=== PATIENT | female | born 1940 | race African-American/Black ===

== ENCOUNTER 2024-01-11 18:55 | Observation (INO) ==
--- NOTE | 2024-01-11 19:17 | ED.PDOC ---
General ED Provider: Dr. EVA LIANG MD Chief Complaint: Nausea/Vomiting Stated Complaint: Patient is a 83-year-old female that was brought to the emergency department by the care home for chest pain, shortness of breath, and nausea and vomiting. Patient's family member was at bedside and stated the care home stated the patient had 4 bouts of nausea and vomiting. They stated that they had not given her anything for the nausea and vomiting. They also stated that the patient has been coughing for the past couple days. They stated that the patient started complaining of chest discomfort with her coughing this afternoon. The patient stated that the chest discomfort was centered in her chest and does not radiate. They denied the patient having any diaphoresis. They stated that nothing made the symptoms worse or better. They denied the patient having any diarrhea, dizziness, syncope, loss of consciousness, abdominal pain, fever, or any other acute symptoms not currently mentioned in the HPI. Patient has tachycardia with a rate of 117 bpm. Patient's other vital signs are stable. Patient's GCS is 15. Time Seen by Provider: 01/11/24 18:57 Mode of Arrival: Wheelchair Information Source: Patient Exam Limitations: No limitations Primary Care Provider: ESSENCE ADAME Nursing and Triage Documentation Reviewed and Agree: Yes Does Patient Take Opioids?: No Is Patient Opioid Naive?: No What is Opioid Naive?: *Opioid Naive implies the patient is not already taking opioids or not chronically receiving opioids on a daily basis. *PRN dosing is not "usually" associated with tolerance. *Patients are at higher risk of over-sedation and aspiration. Is Patient Opioid Tolerant?: No What is Opioid Tolerant?: *Opioid Tolerance implies less than the expected response to an opioid. *Acquired tolerance is defined by the patient taking 60mg of oral morphine daily (or equianalgesic dose of another opioid) for 1 week or more. *Often associated with chronic pain. *May take more than usual dose to achieve desired pain control. Review of Systems Review Of Systems Constitutional: Reports No symptoms Eyes: Reports No symptoms Ears, Nose, Mouth, Throat: Reports No symptoms Respiratory: Reports Cough and Shortness of Breath Cardiac: Reports Chest pain GI: Reports Nausea and Vomiting : Reports No symptoms Musculoskeletal: Reports No symptoms Skin: Reports No symptoms Neurological: Reports No symptoms Endocrine: Reports No symptoms Hematologic/Lymphatic: Reports No symptoms All Other Systems: Reviewed and Negative [facility] Medical History Diabetes mellitus E11.9 - Type 2 diabetes mellitus without complications (ICD-10) Schizophrenia F20.9 - Schizophrenia, unspecified (ICD-10) Surgical History History of gynecological procedure Z98.890 - Other specified postprocedural states (ICD-10) Status post hysterectomy Z90.710 - Acquired absence of both cervix and uterus (ICD-10) Female Reproductive History Menstrual Hx Hysterectomy: Yes Hx Tubal Ligation: No Physical Exam Physical Exam Appearance: Reports Well-nourished Ill-appearing: Not Applicable Pain Distress: Not Applicable Eyes: Reports ISAIAS, EOMI and Conjunctiva clear ENT: Reports Nose normal and Oropharynx normal Neck: Supple Respiratory: Reports Airway patent, Breath sounds equal, Wheezes (B/L mid and lower lung ny), Other (Tachypneic with a rate of 26 bpm. ) and Not Examined Cardiovascular: Reports Pulses normal, No rub, No murmur and Tachycardia (HR 126 bpm) GI/: Reports Soft, Nontender and Bowel sounds normal Musculoskeletal: Reports Normal strength, ROM intact and No edema Skin: Reports Warm, Dry and Normal color Neurological: Reports Sensation intact, Motor intact and Reflexes intact Psychiatric: Reports Not Examined Critical Care Note Critical Care Note Total Critical Care Time (mins): 60 Comments: Critical Care Procedure Note Authorized and Performed by: Dr. Eva Liang MD, MPH Total critical care time: 60minutes Due to a high probability of clinically significant, life threatening deterioration, the patient required my highest level of preparedness to intervene emergently and I personally spent this critical care time directly and personally managing the patient. This critical care time included obtaining a history; examining the patient; pulse oximetry; ordering and review of studies; arranging urgent treatment with development of a management plan; evaluation of patient's response to treatment; frequent reassessment; and, discussions with other providers. This critical care time was performed to assess and manage the high probability of imminent, life-threatening deterioration that could result in multi-organ failure. It was exclusive of separately billable procedures and treating other patients and teaching time. Please see MDM section and the rest of the note for further information on patient assessment and treatment. Course Course 01/11/24 19:20 01/11/24 19:20 Orders, Labs, Meds: Lab Review 01/11/24 01/11/24 19:20 19:26 WBC 5.57 RBC 5.20 Hgb 13.3 Hct 42.8 MCV 82.3 MCH 25.6 L MCHC 31.1 L RDW Coeff of [place] 16.3 H Plt Count 257 Immature Gran % (Auto) 0.4 Neut % (Auto) 56.2 Lymph % (Auto) 30.3 [place] % (Auto) 10.2 H Eos % (Auto) 2.5 Baso % (Auto) 0.4 Neut # (Auto) 3.1 Lymph # (Auto) 1.7 [place] # (Auto) 0.6 Eos # (Auto) 0.1 Baso # (Auto) 0.0 Immature Gran # (Auto) 0.0 Sodium 141.0 Potassium 3.89 Chloride 108.6 H Carbon Dioxide 21.3 L Anion Gap 14.99 BUN 16.8 Creatinine 1.00 Estimated GFR (MDRD) 64.00 BUN/Creatinine Ratio 16.80 Glucose 116.5 H Lactic Acid 1.64 Calcium 9.52 Total Bilirubin 0.47 AST 27.6 ALT 18.6 Alkaline Phosphatase 73.9 Troponin I < 0.012 Total Protein 7.20 Albumin 4.03 Globulin 3.17 Albumin/Globulin Ratio 1.27 Lipase 160.7 Influ A Molecular Assay Negative by naat Influ B Molecular Assay Negative by naat RSV Antigen Negative by naat SARS CoV-2 RNA Rapid VAISHALI Negative Orders Category Date Time Status EKG-(ED ONLY) Stat CARDIO 01/11/24 19:17 Completed NEBULIZER TREATMENT Stat CARDIO 01/11/24 19:18 Completed NPO REMINDER: IMAGING ONCE CARE 01/11/24 21:02 Active ACCUCHECK (ED) [ED ACCUCHECK ASSESSMENT] .ONCE EMERGENCY 01/11/24 19:18 Active ED IV/MEDIPORT/POWERPORT .ONCE EMERGENCY 01/11/24 19:12 Active BLOOD CULTURE (ED ONLY) Stat LAB 01/11/24 19:35 Ordered CBC W/ AUTO DIFF Stat LAB 01/11/24 19:20 Completed COMPREHENSIVE METABOLIC PANEL Stat LAB 01/11/24 19:20 Completed FLU A & B MOLECULAR [FLU A/B MOLECULAR] Stat LAB 01/11/24 19:26 Completed LACTIC ACID Stat LAB 01/11/24 19:20 Completed LIPASE Stat LAB 01/11/24 19:20 Completed RAPID STREP SCREEN [MOLECULAR GROUP A STREP] Stat LAB 01/11/24 19:26 Completed RSV Stat LAB 01/11/24 19:26 Completed SARS COV-2 RNA RAPID VAISHALI Stat LAB 01/11/24 19:26 Completed TROPONIN I Stat LAB 01/11/24 19:20 Completed URINALYSIS C & S IF INDICATED Stat LAB 01/11/24 19:12 Uncollected 0.9 % Sodium Chloride [Saline Flush] Meds 01/11/24 19:12 Active 1 syr IVF PRN PRN Ipratropium/Albuterol Neb [Duoneb] Meds 01/11/24 19:17 Discontinued 3 ml NEB ONCE STA Labetalol HCl [Trandate] Meds 01/11/24 20:25 Discontinued 20 mg IVP ONCE ONE Labetalol HCl [Trandate] Meds 01/11/24 20:59 Discontinued 20 mg IVP ONCE ONE Methylprednisolone Sod Succ/Pf [Solu-Medrol 125 mg] Meds 01/11/24 19:17 Discontinued 125 mg IVP ONCE ONE Ondansetron HCl/Pf [Zofran 4 mg/2 ml] Meds 01/11/24 19:12 Discontinued 4 mg IVP ONCE STA Pantoprazole Sodium [Protonix] Meds 01/11/24 19:23 Discontinued 40 mg IVP ONCE ONE Piperacillin Sodium/Tazobactam [Zosyn 3.375 gm] 3.375 Meds 01/11/24 20:06 Discontinued gm 0.9 % Sodium Chloride [Sodium Chloride 100Ml] 100 ml IV ONCE Sodium Chloride 0.9% [Sodium Chloride] 1,000 ml Meds 01/11/24 19:12 Discontinued IV BOLUS CHEST, 1V AP ONLY Stat RADS 01/11/24 19:22 Completed CTA CHEST PE PROTOCOL Stat RADS 01/11/24 21:02 Completed Medications Generic Name Dose Route Start Last Admin Trade Name Freq PRN Reason Stop Dose Admin Sodium Chloride 1 syr 01/11/24 19:12 0.9% Sodium Chloride 10 Ml Disp.Syrin IVF PRN PRN To flush IV Discontinued Medications Generic Name Dose Route Start Last Admin Trade Name Freq PRN Reason Stop Dose Admin Albuterol/Ipratropium 3 ml 01/11/24 19:17 01/11/24 19:36 Ipratropium/Albuterol Vial.Neb NEB 01/11/24 19:18 3 ml ONCE STA Administration Sodium Chloride 1,000 mls @ 1,000 mls/hr 01/11/24 19:12 01/11/24 19:33 Sodium Chloride IV 01/11/24 20:11 1,000 mls/hr BOLUS ONE Administration Piperacillin Sod/Tazobactam 100 mls @ 200 mls/hr 01/11/24 20:06 01/11/24 20:52 Sod 3.375 gm/ Sodium Chloride IV 01/11/24 20:35 200 mls/hr ONCE ONE Administration Labetalol HCl 20 mg 01/11/24 20:25 01/11/24 20:45 Labetalol Hcl 20 Mg/4 Ml Disp.Syrin IVP 01/11/24 20:26 20 mg ONCE ONE Administration Labetalol HCl 20 mg 01/11/24 20:59 Labetalol Hcl 20 Mg/4 Ml Disp.Syrin IVP 01/11/24 21:00 ONCE ONE Methylprednisolone Sodium Succinate 125 mg 01/11/24 19:17 01/11/24 19:33 Methylprednisolone Sod Succ/Pf 125 Mg/2 Ml Vial IVP 01/11/24 19:18 125 mg ONCE ONE Administration Ondansetron HCl 4 mg 01/11/24 19:12 01/11/24 19:33 Ondansetron Hcl/Pf 4 Mg/2 Ml Sdv IVP 01/11/24 19:13 4 mg ONCE STA Administration Pantoprazole Sodium 40 mg 01/11/24 19:23 01/11/24 19:43 Pantoprazole Sodium 40 Mg Vial IVP 01/11/24 19:24 40 mg ONCE ONE Administration Vital Signs: Temp Pulse Resp BP Pulse Ox 01/11/24 19:05 97.2 F L 117 H 20 102/69 97 Discharge Plan Discharge Patient Disposition: PLACED OBSERVATION Discharge Problem: Community acquired bacterial pneumonia, Hypertensive urgency, Pleural effusion Dyspnea Qualifiers: Dyspnea type: shortness of breath Qualified Code(s): R06.02 - Shortness of breath Cancer of right lung Qualifiers: Lung location: unspecified part of lung Qualified Code(s): C34.91 - Malignant neoplasm of unspecified part of right bronchus or lung Did you review [place] MILIT[employer] SOURCE OPERATIONS OFFICER for ALL controlled substances?: Not Applicable ED Provider: AZUL,JESSICA Condition: Stable Physician Progress Note: Patient is a 83-year-old female that was brought to the emergency department by the care home for chest pain, shortness of breath, and nausea and vomiting. Patient's family member was at bedside and stated the care home stated the patient had 4 bouts of nausea and vomiting. They stated that they had not given her anything for the nausea and vomiting. They also stated that the patient has been coughing for the past couple days. They stated that the patient started complaining of chest discomfort with her coughing this afternoon. The patient stated that the chest discomfort was centered in her chest and does not radiate. They denied the patient having any diaphoresis. They stated that nothing made the symptoms worse or better. They denied the patient having any diarrhea, dizziness, syncope, loss of consciousness, abdominal pain, fever, or any other acute symptoms not currently mentioned in the HPI. Patient has tachycardia with a rate of 117 bpm. Patient's other vital signs are stable. Patient's GCS is 15. -Will order EKG, chest x-ray, troponin, and baseline labs. -Will give patient DuoNeb treatment for wheezing. Will also give IV methylprednisolone 125 mg. -EKG shows sinus tachycardia with a rate of [address] elevations noted. Right bundle branch block noted. This was interpreted by the ER physician. -Chest x-ray shows a right lower lobe consolidation which appears to be pneumonia. Will give the patient IV Zosyn 3.375 mg once for community-acquired pneumonia. -Patient has hypertensive urgency with a blood pressure of 186/116. Will give IV labetalol 20 mg. -Patient's blood pressure is 175/114. Patient's heart rate is 114 bpm. Will give another IV labetalol 20 mg. -Will order CTA of the chest to rule out PE. -Patient's blood pressures come down to 127/85. Patient's heart rate is down to 108 bpm. Patient's O2 sat is 97% on room air with 24 respirations per minute. -Will contact hospitalist for admission to the hospital. -(2100) spoke to hospitalist at [facility] about admission for this patient and she has agreed to admit the patient pending the CTA of the chest. -CTA of the chest showed 1. There is narrowing and obliteration of the right pulmonary arteries distal to the main vessel. There is a large mass-like consolidation in this region of the lung with an associated small pleural effusion and neoplasia at this level should be considered. The pulmonary arteries were otherwise unremarkable with no clearly defined embolus. 2. Cardiomegaly. 3. Multiple bilateral pulmonary nodules and masses consistent with a metastatic process. No pulmonary embolism. -Will admit patient to the hospital here at [facility]. -At time of admission for further observation patient's vital signs have improved to a heart rate of 102 bpm. Blood pressure 119/70, 97% O2 on room air.
[2024-01-11] MEDS: SODIUM CHLORIDE 1,000 ML IV ONE (19:33)
[2024-01-11] MEDS: ZOFRAN 4 MG/2 ML IVP STA (19:33)
[2024-01-11] MEDS: SOLU-MEDROL 125 MG IVP ONE (19:33)
[2024-01-11 19:35] LABS: BASOPHILS % (AUTO) 0.4 % (0.0-3.0); EOSINOPHILS # (AUTO) 0.1 K/ul (0.0-0.7); EOSINOPHILS % (AUTO) 2.5 % (0.0-7.0); HEMATOCRIT 42.8 % (37.0-47.0); HEMOGLOBIN 13.3 g/dl (12.0-16.0); IMMATURE GRANULOCYTE % (AUTO) 0.4 % (0.0-5.0); LYMPHOCYTES # (AUTO) 1.7 K/uL (0.60-3.4); LYMPHOCYTES % (AUTO) 30.3 (10.0-50.0); MEAN CORPUSCULAR HEMOGLOBIN 25.6 pg (27.0-31.0); MEAN CORPUSCULAR HGB CONC 31.1 (31.8-35.4); MEAN CORPUSCULAR VOLUME 82.3 fl (81.0-99.0); MONOCYTES # (AUTO) 0.6 K/uL (0.4-2.0); MONOCYTES % (AUTO) 10.2 (0-10); NEUTROPHILS # (AUTO) 3.1 K/ul (2.0-6.9); NEUTROPHILS % (AUTO) 56.2 % (42.2-75.2); PLATELET COUNT 257 10^3/uL (140-440); RDW COEFFICIENT OF VARIATION 16.3 % (11.6-14.8); WHITE BLOOD COUNT 5.57 K/ul (4.6-10.2)
[2024-01-11] MEDS: DUONEB NEB STA (19:36)
[2024-01-11] MEDS: PROTONIX IVP ONE (19:43)
[2024-01-11 20:10] LABS: ALANINE AMINOTRANSFERASE 18.6 U/L (0-35); ALBUMIN 4.03 g/dL (3.5-5.0); ALKALINE PHOSPHATASE 73.9 U/L (53-141); ASPARTATE AMINO TRANSFERASE 27.6 U/L (14-36); BILIRUBIN,TOTAL 0.47 mg/dL (0.2-1.3); BLOOD UREA NITROGEN 16.8 mg/dL (7-17); CALCIUM 9.52 mg/dL (8.4-10.2); CARBON DIOXIDE 21.3 mmol/L (22-30.0); CHLORIDE 108.6 mmol/L (98-107); GLUCOSE 116.5 mg/dL (74-106); LIPASE 160.7 U/L (23-300); POTASSIUM 3.89 mmol/L (3.5-5.1); TOTAL PROTEIN 7.2 g/dL (6.3-8.2)
[2024-01-11 20:11] LABS: MOLECULAR FLU A NEGATIVE BY NAAT (NEGATIVE); MOLECULAR FLU B NEGATIVE BY NAAT (NEGATIVE); RSV MOLECULAR NEGATIVE BY NAAT (NEGATIVE); SARS COV-2 RNA RAPID NAAT NEGATIVE (NEGATIVE)
--- NOTE | 2024-01-11 20:29 | DI ---
EXAM: CHEST RADIOGRAPH (1 VIEW) TECHNIQUE: Frontal Chest Radiograph. HISTORY: Nausea vomiting wheezing short of air COMPARISON: 05/21/2023 FINDINGS: Lines, Tubes, Devices: None Lungs and Pleura: Small to moderate right pleural fluid collection is present similar to May 21 2023. There is no obvious consolidation. Left lung is clear Cardiomediastinum: Normal cardiomediastinal silhouette. The aortic calcifications. Bones/Soft Tissues: No acute osseous abnormality. No soft tissue abnormality. Upper Abdomen: Within normal limits. IMPRESSION: Moderate right pleural complex similar to 05/21/2023
[2024-01-11] MEDS: TRANDATE IVP ONE (20:45)
[2024-01-11] MEDS: ZOSYN 3.375 GM 3.375 GM in SODIUM CHLORIDE 100ML 100 ML IV ONE (20:52)
[2024-01-11] MEDS ORDERED: TRANDATE IVP ONE (20:59)
--- NOTE | 2024-01-11 22:08 | CT ---
EXAM: CT ANGIOGRAPHY CHEST (PE PROTOCOL) HISTORY: Chest pain, tachycardia TECHNIQUE: CTA chest with intravenous contrast. PE protocol. Multiplanar images were provided with MIP images and 3-D reconstructions. COMPARISON: 06/09/2023 FINDINGS: There is narrowing and obliteration of the right pulmonary arteries distal to the main ve ssel. There is a large mass-like consolidation in this region of the lung with an associated small p leural effusion and neoplasia at this level should be considered. The pulmonary arteries were otherw ise unremarkable with no clearly defined embolus. Moderate atherosclerotic disease. Coronary artery calcifications. Cardiomegaly. Cannot exclude conglomerate mediastinal lymphadenopathy. Enlarged n odular thyroid gland. Multiple bilateral pulmonary nodules and masses consistent with a metastatic p rocess. There is no pneumothorax. - - - - - IMPRESSION: 1. There is narrowing and obliteration of the right pulmonary arteries distal to the main vessel. T here is a large mass-like consolidation in this region of the lung with an associated small pleural e ffusion and neoplasia at this level should be considered. The pulmonary arteries were otherwise unre markable with no clearly defined embolus. 2. Cardiomegaly. 3. Multiple bilateral pulmonary nodules and masses consistent with a metastatic process. - - - - - All CT scans are performed using dose optimization techniques as appropriate to the performed exam an d include at least one of the following: Automated exposure control, adjustment of the mA and/or kV according t o size, and the use of iterative reconstruction technique.
[2024-01-11] MEDS ORDERED: HUMULIN R (10ML) SUBCUT PRN (22:27)
[2024-01-11] MEDS ORDERED: ZOFRAN 4 MG/2 ML IVP PRN (22:27)
[2024-01-11] MEDS ORDERED: MORPHINE 2 MG/ML SYRINGE IVP PRN (22:27)
[2024-01-11] MEDS: DUONEB NEB PRN (23:36)
[2024-01-12 00:17] VITALS: BMI 24.7
[2024-01-12 05:36] LABS: BILIRUBIN,URINE Negative (NEGATIVE); CLARITY,URINE Clear (CLEAR); COLOR,URINE Yellow (YELLOW); GLUCOSE, URINE (UA) Negative (NEGATIVE); KETONES,URINE Negative (NEGATIVE); LEUKOCYTE ESTERASE ,URINE Negative (NEGATIVE); NITRITE,URINE Negative (NEGATIVE); PROTEIN,URINE Negative (NEGATIVE); URINE, BLOOD Negative (NEGATIVE); UROBILINOGEN,URINE 0.2 (0.2)
[2024-01-12 05:37] LABS: BASOPHILS % (AUTO) 0.2 % (0.0-3.0); HEMATOCRIT 36.9 % (37.0-47.0); HEMOGLOBIN 11.7 g/dl (12.0-16.0); IMMATURE GRANULOCYTE % (AUTO) 0.3 % (0.0-5.0); LYMPHOCYTES # (AUTO) 0.5 K/uL (0.60-3.4); LYMPHOCYTES % (AUTO) 8.5 (10.0-50.0); MEAN CORPUSCULAR HEMOGLOBIN 26.2 pg (27.0-31.0); MEAN CORPUSCULAR HGB CONC 31.7 (31.8-35.4); MEAN CORPUSCULAR VOLUME 82.7 fl (81.0-99.0); MONOCYTES # (AUTO) 0.1 K/uL (0.4-2.0); MONOCYTES % (AUTO) 0.8 (0-10); NEUTROPHILS # (AUTO) 5.6 K/ul (2.0-6.9); NEUTROPHILS % (AUTO) 90.2 % (42.2-75.2); PLATELET COUNT 260 10^3/uL (140-440); RDW COEFFICIENT OF VARIATION 15.6 % (11.6-14.8); RED BLOOD COUNT 4.46 10^6/ul (4.20-5.40); WHITE BLOOD COUNT 6.23 K/ul (4.6-10.2)
[2024-01-12 05:52] LABS: ALANINE AMINOTRANSFERASE 21.9 U/L (0-35); ALBUMIN 4.22 g/dL (3.5-5.0); ALKALINE PHOSPHATASE 70.8 U/L (53-141); ASPARTATE AMINO TRANSFERASE 27.7 U/L (14-36); BILIRUBIN,TOTAL 0.37 mg/dL (0.2-1.3); BLOOD UREA NITROGEN 16.8 mg/dL (7-17); CALCIUM 9.68 mg/dL (8.4-10.2); CARBON DIOXIDE 20.7 mmol/L (22-30.0); CHLORIDE 106.4 mmol/L (98-107); CREATININE 1.09 mg/dL (0.60-1.30); GLUCOSE 179.7 mg/dL (74-106); POTASSIUM 4.44 mmol/L (3.5-5.1); SODIUM 139.5 mmol/L (134.5-145); TOTAL PROTEIN 7.58 g/dL (6.3-8.2)
--- NOTE | 2024-01-12 09:33 | DCSUM ---
Hospital Provider Hospital Provider: LATOYA BALLARD, [facility] Primary [facility] Physician Primary Care Physician: [facility] Course Vital Signs: Most Recent Vital Signs Temperature 98.6 F 01/12/24 05:26 Temperature Source Temporal Artery Scan 01/12/24 05:26 Temperature Source Infrared 01/11/24 19:05 Pulse Rate 118 H 01/12/24 05:26 Respiratory Rate 20 01/12/24 05:26 Blood Pressure 147/85 H 01/12/24 05:26 Blood Pressure Mean 105 01/12/24 05:26 Blood Pressure Left Arm 179/107 01/11/24 23:07 Blood Pressure Location Right Arm 01/12/24 05:26 Blood Pressure Position Supine 01/12/24 00:59 O2 Sat by Pulse Oximetry 98 01/12/24 05:26 Oxygen Delivery Method Room Air 01/12/24 09:00 Height 5 ft 6 in 01/11/24 23:07 Weight 69.7 kg 01/11/24 23:07 Telemetry Type Remote Telemetry 01/12/24 01:00 Telemetry Monitoring Continues 01/12/24 01:00 Telemetry Heart Rate 112 H 01/12/24 01:00 EKG WA Interval 0.18 01/12/24 01:00 EKG QRS Interval 0.12 H 01/12/24 01:[address]/BBB 01/12/24 01:00 Lab Results Last 24 Hours: 01/12/24 01/12/24 01/11/24 05:23 05:10 19:26 WBC 6.23 RBC 4.46 Hgb 11.7 L Hct 36.9 L MCV 82.7 MCH 26.2 L MCHC 31.7 L RDW Coeff of [place] 15.6 H Plt Count 260 Immature Gran % (Auto) 0.3 Neut % (Auto) 90.2 H Lymph % (Auto) 8.5 L [place] % (Auto) 0.8 Eos % (Auto) 0.0 Baso % (Auto) 0.2 Neut # (Auto) 5.6 Lymph # (Auto) 0.5 L [place] # (Auto) 0.1 L Eos # (Auto) 0.0 Baso # (Auto) 0.0 Immature Gran # (Auto) 0.0 Sodium 139.5 Potassium 4.44 Chloride 106.4 Carbon Dioxide 20.7 L Anion Gap 16.84 BUN 16.8 Creatinine 1.09 Estimated GFR (MDRD) 58.00 BUN/Creatinine Ratio 15.41 Glucose 179.7 H D Lactic Acid Calcium 9.68 Total Bilirubin 0.37 AST 27.7 ALT 21.9 Alkaline Phosphatase 70.8 Troponin I Total Protein 7.58 Albumin 4.22 Globulin 3.36 Albumin/Globulin Ratio 1.25 Lipase Urine Color Yellow Urine Clarity Clear Urine pH 6.0 Ur Specific [place] 1.015 Urine Protein Negative Urine Glucose (UA) Negative Urine Ketones Negative Urine Blood Negative Urine Nitrite Negative Urine Bilirubin Negative Urine Urobilinogen 0.2 Ur Leukocyte Esterase Negative Influ A Molecular Assay Negative by naat Influ B Molecular Assay Negative by naat RSV Antigen Negative by naat SARS CoV-2 RNA Rapid VAISHALI Negative 01/11/24 19:20 WBC 5.57 RBC 5.20 Hgb 13.3 Hct 42.8 MCV 82.3 MCH 25.6 L MCHC 31.1 L RDW Coeff of [place] 16.3 H Plt Count 257 Immature Gran % (Auto) 0.4 Neut % (Auto) 56.2 Lymph % (Auto) 30.3 [place] % (Auto) 10.2 H Eos % (Auto) 2.5 Baso % (Auto) 0.4 Neut # (Auto) 3.1 Lymph # (Auto) 1.7 [place] # (Auto) 0.6 Eos # (Auto) 0.1 Baso # (Auto) 0.0 Immature Gran # (Auto) 0.0 Sodium 141.0 Potassium 3.89 Chloride 108.6 H Carbon Dioxide 21.3 L Anion Gap 14.99 BUN 16.8 Creatinine 1.00 Estimated GFR (MDRD) 64.00 BUN/Creatinine Ratio 16.80 Glucose 116.5 H Lactic Acid 1.64 Calcium 9.52 Total Bilirubin 0.47 AST 27.6 ALT 18.6 Alkaline Phosphatase 73.9 Troponin I < 0.012 Total Protein 7.20 Albumin 4.03 Globulin 3.17 Albumin/Globulin Ratio 1.27 Lipase 160.7 Urine Color Urine Clarity Urine pH Ur Specific [place] Urine Protein Urine Glucose (UA) Urine Ketones Urine Blood Urine Nitrite Urine Bilirubin Urine Urobilinogen Ur Leukocyte Esterase Influ A Molecular Assay Influ B Molecular Assay RSV Antigen SARS CoV-2 RNA Rapid VAISHALI Discharge Instructions Discharge Planning: Discharge Planning > 40 minutes If patient is discharged with left ventricular systolic dysfunction: Discharged with a beta tyler? [] If no, why not? [] Discharged with an kennedi/arb? [] If no, why not? [] Discharge Medications: Medications at Discharge (Home Meds & RX) metformin 500 mg tablet 500 mg PO BID #90 tab-caps 05/03/14 acetaminophen 650 mg tablet,extended release (Pain Relief (acetaminophen)) 650 mg PO Q6HR PRN pain 09/27/22 bisacodyl 10 mg rectal suppository 10 mg [place] DAILY PRN constipation 09/27/22 cholecalciferol (vitamin D3) 10 mcg (400 unit) capsule (Vitamin D3) 10 mcg PO DAILY 09/27/22 loratadine 10 mg tablet (Allergy Relief (loratadine)) 10 mg PO DAILY PRN allergy symptoms 09/27/22 magnesium hydroxide 400 mg/5 mL oral suspension (Milk of Magnesia) 30 ml PO DAILY PRN constipation 09/27/22 sennosides 8.6 mg-docusate sodium 50 mg tablet (2-in-1 Laxative) 1 tab-cap PO BID 09/27/22 albuterol sulfate 2.5 mg/3 mL (0.083 %) solution for nebulization 2.5 mg inhalation Q6H PRN shortness of breath or wheezing 01/11/24 albuterol sulfate 90 mcg/actuation breath activated powder inhaler,sensor (Proair Digihaler) 2 inh inhalation Q6H PRN shortness of breath 01/11/24 benztropine 0.5 mg tablet 0.5 mg PO .at bedtime 01/11/24 brexpiprazole 1 mg tablet (Rexulti) 1 mg PO DAILY 01/11/24 dextromethorphan-guaifenesin 10 mg-100 mg/5 mL oral liquid (Biocotron) 10 ml PO Q6H 01/11/24 diclofenac sodium 1 % topical gel (Arthritis Pain (diclofenac)) 2 g topical Q6HR 01/11/24 donepezil 10 mg tablet 10 mg PO DAILY 01/11/24 dulaglutide 1.5 mg/0.5 mL subcutaneous pen injector (Trulicity) 1.5 mg subcut .Every morning 01/11/24 losartan 25 mg tablet 25 mg PO DAILY 01/11/24 megestrol 400 mg/10 mL (40 mg/mL) oral suspension 40 mg PO .every morning 01/11/24 memantine 10 mg tablet 10 mg PO 2XD 01/11/24 oxybutynin chloride 5 mg tablet,extended release 24 hr 5 mg PO DAILY 01/11/24 paliperidone palmitate 234 mg/1.5 mL intramuscular syringe (Invega Sustenna) 234 mg IM MONTHLY 01/11/24 polysaccharide iron complex 150 mg iron capsule 150 mg PO DAILY 01/11/24 potassium chloride 10 mEq capsule,extended release 20 meq PO 2XD 01/11/24 Discharge Plan Discharge Discharge Orders: Discharge Patient (ONCE); Ordered 01/12/24 Ordered By: OBED NASSAR Activity Restrictions/Additional Instructions: Diagnosis: Lung Cancer Diet: Diabetic Activity: as tolerated Follow-up with PCP next week Medications: [place] 5/325 1-2 tabs every 4-6 hours as needed for pain Duoneb Q4-6H as needed for shortness of breath Instructions: Lung Cancer (GEN) Patient Disposition: TRANSFER [facility] Prescriptions: New ipratropium-albuterol 0.5 mg-3 mg(2.5 mg base)/3 mL Solution For Nebulization 3 ml NEB RTQ4H PRN (Reason: shortness of breath or wheezing) Qty: 100 0RF hydrocodone-acetaminophen 5-325 mg tablet 1 - 2 tab PO Q4-6H PRN (Reason: pain) Qty: 90 0RF Continued metformin 500 MG tablet 500 mg PO BID Qty: 90 acetaminophen [Pain Relief (acetaminophen)] 650 mg tablet extended release 650 mg PO Q6HR PRN (Reason: pain) bisacodyl 10 mg suppository 10 mg [place] DAILY PRN (Reason: constipation) loratadine [Allergy Relief (loratadine)] 10 mg tablet 10 mg PO DAILY PRN (Reason: allergy symptoms) magnesium hydroxide [Milk of Magnesia] 400 mg/5 mL suspension 30 ml PO DAILY PRN (Reason: constipation) sennosides-docusate sodium [2-in-1 Laxative] 8.6-50 mg tablet 1 tab-cap PO BID cholecalciferol (vitamin D3) [Vitamin D3] 10 mcg (400 unit) capsule 10 mcg PO DAILY diclofenac sodium [Arthritis Pain (diclofenac)] 1 % gel 2 g topical Q6HR Rx Instructions: bilateral hands topically every 6 hours Trulicity 1.5 mg/0.5 mL pen injector 1.5 mg subcut .Every Tues morning potassium chloride 10 mEq capsule, extended release 20 meq PO 2XD benztropine 0.5 mg tablet 0.5 mg PO .at bedtime albuterol sulfate 2.5 mg /3 mL (0.083 %) solution for nebulization 2.5 mg inhalation Q6H PRN (Reason: shortness of breath or wheezing) Patient Comments: [NO ORIGINAL SIG] megestrol 400 mg/10 mL (40 mg/mL) suspension 40 mg PO .every morning donepezil 10 mg tablet 10 mg PO DAILY losartan 25 mg tablet 25 mg PO DAILY memantine 10 mg tablet 10 mg PO 2XD oxybutynin chloride 5 mg tablet extended release 24hr 5 mg PO DAILY dextromethorphan-guaifenesin [Biocotron] 10-100 mg/5 mL liquid 10 ml PO Q6H Invega Sustenna 234 mg/1.5 mL syringe 234 mg IM MONTHLY polysaccharide iron complex 150 mg iron capsule 150 mg PO DAILY Proair Digihaler 90 mcg/actuation aero powdr breath act w/sensor 2 inh inhalation Q6H PRN (Reason: shortness of breath) Rexulti 1 mg tablet 1 mg PO DAILY Did you review [place] HOSPICE MANAGER for ALL controlled substances?: No Discussed opioids are addictive and Narcan is available by prescription or from pharmacy.: No Condition: Stable
[2024-01-12] MEDS ORDERED: MICRO-K CAP PO SCH (09:50)
[2024-01-12] MEDS: DITROPAN XL PO SCH (11:58)
[2024-01-12] MEDS: NAMENDA PO SCH (11:58)
[2024-01-12] MEDS: NIFEREX 150 PO SCH (11:59)
[2024-01-12] MEDS: ARICEPT PO SCH (12:00)
[2024-01-12] MEDS: COZAAR PO SCH (12:00)
[2024-01-12] MEDS: K-DUR PO SCH (12:01)
--- NOTE | 2024-01-12 12:15 | PCM ---
Date of Service Date Seen by Provider: 01/12/24 Time Seen by Provider: 08:45 Admit Day/Time Admission Date: 01/11/24 Reason for Admission Chief Complaint: HTN URGENCY, COMM. AQUIRED PNUMONIA, Hospital Provider Hospital Provider: LATOYA BALLARD, [facility] Primary Care Physician Primary Care Physician: ESSENCE ADAME History of Present Illness History of Present Illness: 83 yo female with pmh of lung cancer, schizophrenia, and diabetes from local SNF presented to the ER with chest pain, sob, and N/V. Patient is unable to provide HPI due to schizophrenia. Patient reported chest pain to staff at skilled nursing. Attempted to vomit x3. No fever. Initially, HR was in 120s and BP elevated. Case Discussed With Case Discussed With: Patient's case was discussed with the ER Physicians, Dr. Walker. [facility] Medical History Lung cancer recent diagnosis C34.90 - Malignant neoplasm of unspecified part of unspecified bronchus or lung (ICD-10) Schizophrenia age 22 F20.9 - Schizophrenia, unspecified (ICD-10) Diabetes mellitus age 32 E11.9 - Type 2 diabetes mellitus without complications (ICD-10) Surgical History Status post hysterectomy age 45 Z90.710 - Acquired absence of both cervix and uterus (ICD-10) History of gynecological procedure 32 Z98.890 - Other specified postprocedural states (ICD-10) Family History Other No known health problems Social History Smoking and tobacco status: Former smoker Alcohol intake: unknown Allergies Allergies Allergy/AdvReac Type Severity Reaction Status Date / Time No Known Allergies Allergy Verified 01/11/24 19:07 Current Medications Home Medications metformin 500 mg tablet 500 mg PO BID #90 tab-caps 05/03/14 [History Confirmed 01/12/24 Last Taken 01/11/24 08:00] acetaminophen 650 mg tablet,extended release (Pain Relief (acetaminophen)) 650 mg PO Q6HR PRN pain 09/27/22 [History Confirmed 01/11/24 Last Taken Unknown] cholecalciferol (vitamin D3) 10 mcg (400 unit) capsule (Vitamin D3) 10 mcg PO DAILY 09/27/22 [History Confirmed 01/12/24 Last Taken 01/11/24 08:00] loratadine 10 mg tablet (Allergy Relief (loratadine)) 10 mg PO DAILY PRN allergy symptoms 09/27/22 [History Confirmed 01/12/24 Last Taken Unknown] magnesium hydroxide 400 mg/5 mL oral suspension (Milk of Magnesia) 30 ml PO DAILY PRN constipation 09/27/22 [History Confirmed 01/12/24 Last Taken Unknown] sennosides 8.6 mg-docusate sodium 50 mg tablet (2-in-1 Laxative) 1 tab-cap PO BID 09/27/22 [History Confirmed 01/12/24 Last Taken 01/11/24 08:00] albuterol sulfate 2.5 mg/3 mL (0.083 %) solution for nebulization 2.5 mg inhalation Q6H PRN shortness of breath or wheezing 01/11/24 [History Confirmed 01/11/24 Last Taken Unknown] albuterol sulfate 90 mcg/actuation breath activated powder inhaler,sensor (Proair Digihaler) 2 inh inhalation Q6H PRN shortness of breath 01/11/24 [History Confirmed 01/11/24 Last Taken Unknown] brexpiprazole 1 mg tablet (Rexulti) 1 mg PO DAILY 01/11/24 [History Confirmed 01/12/24 Last Taken 01/11/24 08:00] dextromethorphan-guaifenesin 10 mg-100 mg/5 mL oral liquid (Biocotron) 10 ml PO Q6H 01/11/24 [History Confirmed 01/12/24 Last Taken Unknown] diclofenac sodium 1 % topical gel (Arthritis Pain (diclofenac)) 2 g topical Q6HR 01/11/24 [History Confirmed 01/12/24 Last Taken Unknown] donepezil 10 mg tablet 10 mg PO DAILY 01/11/24 [History Confirmed 01/12/24 Last Taken 01/10/24] dulaglutide 1.5 mg/0.5 mL subcutaneous pen injector (Trulicity) 1.5 mg subcut .Every Tues morning 01/11/24 [History Confirmed 01/12/24 Last Taken 01/10/24] losartan 25 mg tablet 25 mg PO DAILY 01/11/24 [History Confirmed 01/12/24 Last Taken 01/11/24 08:00] megestrol 400 mg/10 mL (40 mg/mL) oral suspension 40 mg PO .every morning 01/11/24 [History Confirmed 01/12/24 Last Taken 01/11/24 08:00] memantine 10 mg tablet 10 mg PO 2XD 01/11/24 [History Confirmed 01/12/24 Last Taken 01/11/24 08:00] oxybutynin chloride 5 mg tablet,extended release 24 hr 5 mg PO DAILY 01/11/24 [History Confirmed 01/12/24 Last Taken 01/11/24 08:00] paliperidone palmitate 234 mg/1.5 mL intramuscular syringe (Invega Sustenna) 234 mg IM MONTHLY 01/11/24 [History Confirmed 01/12/24 Last Taken 12/23/23 08:00] polysaccharide iron complex 150 mg iron capsule 150 mg PO DAILY 01/11/24 [History Confirmed 01/12/24 Last Taken 01/11/24 08:00] potassium chloride 10 mEq capsule,extended release 20 meq PO 2XD 01/11/24 [History Confirmed 01/12/24 Last Taken 01/11/24 08:00] hydrocodone 5 mg-acetaminophen 325 mg tablet 1 - 2 tab PO Q4-6H PRN pain #90 tabs 01/12/24 [Rx Last Taken Unknown] ipratropium 0.5 mg-albuterol 3 mg (2.5 mg base)/3 mL nebulization soln 3 ml NEB RTQ4H PRN shortness of breath or wheezing #100 mL 01/12/24 [Rx Last Taken Unknown] Home Albuterol/Ipratropium (Ipratropium/Albuterol Vial.Neb) 3 ml NEB RTQ4H PRN PRN Reason: Wheezing Last Admin: 01/11/24 23:36 Dose: 3 ml Donepezil HCl (Donepezil Hcl 10 Mg Tablet) 10 mg PO DAILY [facility] Last Admin: 01/12/24 12:00 Dose: 10 mg Insulin Human Regular (Insulin Regular, Human 100 Unit/Ml (10ml) Vial) 0 unit SUBCUT PRN PRN; Protocol PRN Reason: Hyperglycemia Losartan Potassium (Losartan Potassium 25 Mg Tablet) 25 mg PO DAILY [facility] Last Admin: 01/12/24 12:00 Dose: 25 mg Megestrol Acetate (Megestrol Acetate 400 Mg/10 Ml Ud Cup) 400 mg PO DAILY [facility] Memantine (Memantine Hcl 10 Mg Tablet) 10 mg PO BID [facility] Last Admin: 01/12/24 11:58 Dose: 10 mg Morphine Sulfate (Morphine Sulfate 2 Mg/Ml Syringe) 2 mg IVP Q6H PRN PRN Reason: Pain Ondansetron HCl (Ondansetron Hcl/Pf 4 Mg/2 Ml Sdv) 4 mg IVP Q6H PRN PRN Reason: Nausea / Vomiting Oxybutynin Chloride (Oxybutynin Chloride 5 Mg Tab.Er.24) 5 mg PO DAILY [facility] Last Admin: 01/12/24 11:58 Dose: 5 mg Polysaccharide Iron Complex (Iron Polysaccharide Complex 150 Mg Capsule) 150 mg PO DAILY [facility] Last Admin: 01/12/24 11:59 Dose: 150 mg Potassium Chloride (Potassium Chloride 20 Meq Tab) 20 meq PO BIDWM2 [facility] Last Admin: 01/12/24 12:01 Dose: 20 meq Sodium Chloride (0.9% Sodium Chloride 10 Ml Disp.Syrin) 1 syr IVF PRN PRN PRN Reason: To flush IV Discontinued Medications Albuterol/Ipratropium (Ipratropium/Albuterol Vial.Neb) 3 ml NEB ONCE STA Stop: 01/11/24 19:18 Last Admin: 01/11/24 19:36 Dose: 3 ml Sodium Chloride (Sodium Chloride) 1,000 mls @ 1,000 mls/hr IV BOLUS ONE Stop: 01/11/24 20:11 Last Admin: 01/11/24 19:33 Dose: 1,000 mls/hr Piperacillin Sod/Tazobactam (Sod 3.375 gm/ Sodium Chloride) 100 mls @ 200 mls/hr IV ONCE ONE Stop: 01/11/24 20:35 Last Admin: 01/11/24 20:52 Dose: 200 mls/hr Labetalol HCl (Labetalol Hcl 20 Mg/4 Ml Disp.Syrin) 20 mg IVP ONCE ONE Stop: 01/11/24 20:26 Last Admin: 01/11/24 20:45 Dose: 20 mg Labetalol HCl (Labetalol Hcl 20 Mg/4 Ml Disp.Syrin) 20 mg IVP ONCE ONE Stop: 01/11/24 21:00 Methylprednisolone Sodium Succinate (Methylprednisolone Sod Succ/Pf 125 Mg/2 Ml Vial) 125 mg IVP ONCE ONE Stop: 01/11/24 19:18 Last Admin: 01/11/24 19:33 Dose: 125 mg Ondansetron HCl (Ondansetron Hcl/Pf 4 Mg/2 Ml Sdv) 4 mg IVP ONCE STA Stop: 01/11/24 19:13 Last Admin: 01/11/24 19:33 Dose: 4 mg Pantoprazole Sodium (Pantoprazole Sodium 40 Mg Vial) 40 mg IVP ONCE ONE Stop: 01/11/24 19:24 Last Admin: 01/11/24 19:43 Dose: 40 mg Opioid Naive vs. Tolerant Does Patient Take Opioids?: No Is Patient Opioid Naive?: Yes What is Opioid Naive?: *Opioid Naive implies the patient is not already taking opioids or not chronically receiving opioids on a daily basis. *PRN dosing is not "usually" associated with tolerance. *Patients are at higher risk of over-sedation and aspiration. Is Patient Opioid Tolerant?: No What is Opioid Tolerant?: *Opioid Tolerance implies less than the expected response to an opioid. *Acquired tolerance is defined by the patient taking 60mg of oral morphine daily (or equianalgesic dose of another opioid) for 1 week or more. *Often associated with chronic pain. *May take more than usual dose to achieve desired pain control. Physical examination Most Recent Vital Signs: Most Recent Vital Signs Temperature 98.1 F 01/12/24 10:00 Temperature Source Temporal Artery Scan 01/12/24 10:00 Temperature Source Infrared 01/11/24 19:05 Pulse Rate 93 01/12/24 10:00 Respiratory Rate 15 01/12/24 10:00 Blood Pressure 138/85 01/12/24 10:00 Blood Pressure Mean 102 01/12/24 10:00 Blood Pressure Left Arm 179/107 01/11/24 23:07 Blood Pressure Location Left Arm 01/12/24 10:00 Blood Pressure Position Supine 01/12/24 10:00 O2 Sat by Pulse Oximetry 97 01/12/24 10:00 Oxygen Delivery Method Room Air 01/12/24 10:00 Height 5 ft 6 in 01/11/24 23:07 Weight 69.7 kg 01/11/24 23:07 Telemetry Type Remote Telemetry 01/12/24 07:00 Telemetry Monitoring Continues 01/12/24 07:00 Telemetry Heart Rate 109 H 01/12/24 07:00 EKG WI Interval 0.17 01/12/24 07:00 EKG QRS Interval 0.13 H 01/12/24 07:00 Telemetry Strip Reading Sinus tachycardia with BBB 01/12/24 07:00 Appearance: Positive No Apparent Distress Skin: Positive Warm and Good Turgor HEENT: Positive Normocephalic and PERRLA Neck: Positive Supple and Midline Trachea Chest/Lungs: Positive Symmetrical With Equal Breath Sounds, Rhonci and Wheezes Heart: Positive RRR and Pulses Normal GI/: Positive Soft, Nontender, Bowel Sounds Normal and No Distention Musculoskeletal: Positive Not Examined Extremities: Positive Intact Peripheral Pulses, Stable Joints Without Laxity and Good ROM in All Joints Neurological: Positive Sensation Intact, Motor intact, Alert and Disorinted Labs This Visit Labs This Visit: Labs This Visit 01/11/24 01/11/24 01/12/24 19:20 19:26 05:10 WBC 5.57 6.23 RBC 5.20 4.46 Hgb 13.3 11.7 L Hct 42.8 36.9 L MCV 82.3 82.7 MCH 25.6 L 26.2 L MCHC 31.1 L 31.7 L RDW Coeff of [place] 16.3 H 15.6 H Plt Count 257 260 Immature Gran % (Auto) 0.4 0.3 Neut % (Auto) 56.2 90.2 H Lymph % (Auto) 30.3 8.5 L Clare % (Auto) 10.2 H 0.8 Eos % (Auto) 2.5 0.0 Baso % (Auto) 0.4 0.2 Neut # (Auto) 3.1 5.6 Lymph # (Auto) 1.7 0.5 L Clare # (Auto) 0.6 0.1 L Eos # (Auto) 0.1 0.0 Baso # (Auto) 0.0 0.0 Immature Gran # (Auto) 0.0 0.0 Sodium 141.0 139.5 Potassium 3.89 4.44 Chloride 108.6 H 106.4 Carbon Dioxide 21.3 L 20.7 L Anion Gap 14.99 16.84 BUN 16.8 16.8 Creatinine 1.00 1.09 Estimated GFR (MDRD) 64.00 58.00 BUN/Creatinine Ratio 16.80 15.41 Glucose 116.5 H 179.7 H D Lactic Acid 1.64 Calcium 9.52 9.68 Total Bilirubin 0.47 0.37 AST 27.6 27.7 ALT 18.6 21.9 Alkaline Phosphatase 73.9 70.8 Troponin I < 0.012 Total Protein 7.20 7.58 Albumin 4.03 4.22 Globulin 3.17 3.36 Albumin/Globulin Ratio 1.27 1.25 Lipase 160.7 Urine Color Urine Clarity Urine pH Ur Specific [place] Urine Protein Urine Glucose (UA) Urine Ketones Urine Blood Urine Nitrite Urine Bilirubin Urine Urobilinogen Ur Leukocyte Esterase Influ A Molecular Assay Negative by naat Influ B Molecular Assay Negative by naat RSV Antigen Negative by naat SARS CoV-2 RNA Rapid VAISHALI Negative 01/12/24 05:23 WBC RBC Hgb Hct MCV MCH MCHC RDW Coeff of [place] Plt Count Immature Gran % (Auto) Neut % (Auto) Lymph % (Auto) Clare % (Auto) Eos % (Auto) Baso % (Auto) Neut # (Auto) Lymph # (Auto) Clare # (Auto) Eos # (Auto) Baso # (Auto) Immature Gran # (Auto) Sodium Potassium Chloride Carbon Dioxide Anion Gap BUN Creatinine Estimated GFR (MDRD) BUN/Creatinine Ratio Glucose Lactic Acid Calcium Total Bilirubin AST ALT Alkaline Phosphatase Troponin I Total Protein Albumin Globulin Albumin/Globulin Ratio Lipase Urine Color Yellow Urine Clarity Clear Urine pH 6.0 Ur Specific [place] 1.015 Urine Protein Negative Urine Glucose (UA) Negative Urine Ketones Negative Urine Blood Negative Urine Nitrite Negative Urine Bilirubin Negative Urine Urobilinogen 0.2 Ur Leukocyte Esterase Negative Influ A Molecular Assay Influ B Molecular Assay RSV Antigen SARS CoV-2 RNA Rapid VAISHALI Microbiology This Visit 01/11/24 19:35 Blood Blood Culture - Final 01/11/24 19:26 Throat Group A Strep Molecular Assay - Final Imaging Imaging: EXAM: CT ANGIOGRAPHY CHEST (PE PROTOCOL) FINDINGS: There is narrowing and obliteration of the right pulmonary arteries distal to the main vessel. There is a large mass-like consolidation in this region of the lung with an associated small pleural effusion and neoplasia at this level should be considered. The pulmonary arteries were otherwise unremarkable with no clearly defined embolus. Moderate atherosclerotic disease. Coronary artery calcifications. Cardiomegaly. Cannot exclude conglomerate mediastinal lymphadenopathy. Enlarged nodular thyroid gland. Multiple bilateral pulmonary nodules and masses consistent with a metastatic process. There is no pneumothorax. IMPRESSION: 1. There is narrowing and obliteration of the right pulmonary arteries distal to the main vessel. There is a large mass-like consolidation in this region of the lung with an associated small pleural effusion and neoplasia at this level should be considered. The pulmonary arteries were otherwise unremarkable with no clearly defined embolus. 2. Cardiomegaly. 3. Multiple bilateral pulmonary nodules and masses consistent with a metastatic process. EXAM: CHEST RADIOGRAPH (1 VIEW) FINDINGS: Lines, Tubes, Devices: None Lungs and Pleura: Small to moderate right pleural fluid collection is present similar to May 21 2023. There is no obvious consolidation. Left lung is clear Cardiomediastinum: Normal cardiomediastinal silhouette. The aortic calcifications. Bones/Soft Tissues: No acute osseous abnormality. No soft tissue abnormality. Upper Abdomen: Within normal limits. IMPRESSION: Moderate right pleural complex similar to 05/21/2023 Review Statement Review Statement: I have independently reviewed and interpreted the labs/EKGs/imaging that were ordered by the ER provider. I have reviewed all outside records that are available currently in our EMR including imaging/notes/labs from previous visits. Plan Plan: 1. Sepsis - positive blood culture gram positive cocci, likely contaminate, no WBC elevation, no fever, UA and chest xray negative for infectious source, repeat culture pending 2. Lung Cancer - stopped treatment a couple months ago, family declining hospice at this time but requesting pain medication for chest pain, norco 5/325 1-2 tabs Q4-6 hours prn 3. DM2 - chronic, accuchecks qid with ssi, ada diet 4. Hypertension - chronic, stable, continue home medications DVT Prophylaxis: Ambulation Time Spent: Greater than 80 minutes spent with patient, 50% of the time spent with this patient was devoted to counseling and coordination of care. [facility] minutes spent discussing advance care planning. Disposition: Admit to: Med/surg Observation Full Code Discussed Plan of Care with Dr. Carlo El. Medications Medication Orders: Medications Ordered Category Date Time Status 0.9 % Sodium Chloride [Saline Flush] Meds 01/11/24 19:12 Active 1 syr IVF PRN PRN Donepezil HCl [Aricept] Meds 01/12/24 09:45 Active 10 mg PO DAILY Insulin Regular, Human [Humulin R (10Ml)] Meds 01/11/24 22:27 Active See Protocol SUBCUT PRN PRN Ipratropium/Albuterol Neb [Duoneb] Meds 01/11/24 22:32 Active 3 ml NEB RTQ4H PRN Iron Polysaccharide Complex [Niferex 150] Meds 01/12/24 09:50 Active 150 mg PO DAILY Losartan Potassium [Cozaar] Meds 01/12/24 09:50 Active 25 mg PO DAILY Megestrol Acetate [Megace] Meds 01/13/24 10:30 Active 400 mg PO DAILY Memantine HCl [Namenda] Meds 01/12/24 09:50 Active 10 mg PO BID Morphine Sulfate [Morphine 2 mg/ml Syringe] Meds 01/11/24 22:27 Active 2 mg IVP Q6H PRN Ondansetron HCl/Pf [Zofran 4 mg/2 ml] Meds 01/11/24 22:27 Active 4 mg IVP Q6H PRN Oxybutynin Chloride [Ditropan Xl] Meds 01/12/24 09:50 Active 5 mg PO DAILY Potassium Chloride [K-Dur] Meds 01/12/24 10:00 Active 20 meq PO BIDWM2
[2024-01-13 04:54] LABS: BASOPHILS % (AUTO) 0.1 % (0.0-3.0); EOSINOPHILS # (AUTO) 0.1 K/ul (0.0-0.7); EOSINOPHILS % (AUTO) 0.9 % (0.0-7.0); HEMATOCRIT 35.4 % (37.0-47.0); HEMOGLOBIN 10.9 g/dl (12.0-16.0); IMMATURE GRANULOCYTE % (AUTO) 0.4 % (0.0-5.0); LYMPHOCYTES # (AUTO) 1.3 K/uL (0.60-3.4); LYMPHOCYTES % (AUTO) 18.9 (10.0-50.0); MEAN CORPUSCULAR HEMOGLOBIN 25.6 pg (27.0-31.0); MEAN CORPUSCULAR HGB CONC 30.8 (31.8-35.4); MEAN CORPUSCULAR VOLUME 83.1 fl (81.0-99.0); MONOCYTES # (AUTO) 0.6 K/uL (0.4-2.0); MONOCYTES % (AUTO) 8.8 (0-10); NEUTROPHILS % (AUTO) 70.9 % (42.2-75.2); PLATELET COUNT 221 10^3/uL (140-440); RDW COEFFICIENT OF VARIATION 16.8 % (11.6-14.8); RED BLOOD COUNT 4.26 10^6/ul (4.20-5.40); WHITE BLOOD COUNT 7.02 K/ul (4.6-10.2)
[2024-01-13 05:10] LABS: ALBUMIN 3.86 g/dL (3.5-5.0); ALKALINE PHOSPHATASE 63.9 U/L (53-141); ASPARTATE AMINO TRANSFERASE 23.9 U/L (14-36); BILIRUBIN,TOTAL 0.26 mg/dL (0.2-1.3); BLOOD UREA NITROGEN 20.9 mg/dL (7-17); CALCIUM 9.42 mg/dL (8.4-10.2); CARBON DIOXIDE 24.4 mmol/L (22-30.0); CHLORIDE 109.2 mmol/L (98-107); CREATININE 1.02 mg/dL (0.60-1.30); GLUCOSE 130.7 mg/dL (74-106); POTASSIUM 4.18 mmol/L (3.5-5.1); SODIUM 143.2 mmol/L (134.5-145); TOTAL PROTEIN 6.9 g/dL (6.3-8.2)
[2024-01-13] MEDS ORDERED: VANCOMYCIN 1 GRAM/200 ML PREMIX 1 GM/200 ML BAG IV SCH (09:00)
[2024-01-13] MEDS ORDERED: VANCOMYCIN 1.25 GM/250 ML BAG 1.25 GM/250 ML BAG IV SCH (09:00)
[2024-01-13 10:01] VITALS: RESP 17
[2024-01-13] MEDS: MEGACE PO SCH (11:20)
--- NOTE | 2024-01-13 13:27 | DCSUM ---
Admission Date Admission Date: 01/11/24 Discharge Date Discharge Date: 01/13/24 Admission Diagnosis Admission Diagnosis: 1. Sepsis 2. Lung Cancer 3. DM2 4. Hypertension Discharge Diagnosis Discharge Diagnosis: 1. Sepsis - Ruled out 2. Lung Cancer - Chronic, worsening, supportive care 3. DM2 - Chronic, stable 4. Hypertension - Chronic, stable Hospital Provider Hospital Provider: LATOYA BALLARD, [facility] [place] Primary Care Physician Primary Care Physician: ESSENCE ADAME Summary of History and Physical Summary of History and Physical: 83 yo female with pmh of lung cancer, schizophrenia, and diabetes from local SNF presented to the ER with chest pain, sob, and N/V. Patient is unable to provide HPI due to schizophrenia. Patient reported chest pain to staff at snf. Attempted to vomit x3. No fever. Initially, HR was in 120s and BP elevated. Hospital Course Subjective: During stay, patient no longer experienced chest pain, sob, n/v. When agitated due to schizophrenia, heart rate would increase but return to normal limits. Incidental finding of 1 positive bottle blood culture of gram positive cocci. No source of infection noted. No s/sx noted. Negative UA, chest x-ray, no elevation or decline in WBC count. No fever during stay. Repeat blood cultures collected and negative x 24 hours. D/c patient with norco for pain control r/t lung cancer and inhaler for prn use if shortness of breath or wheezing occurs as well. Follow-up with PCP upon discharge. No changes to home medication regimen. Appearance: Pleasant, No Apparent Distress and Alert HEENT: MMM, Supple and No JVD CVS: No Murmur Abdomen: Soft, Non-Tender and No Distention Respiratory: No Dyspnea Extremities: No Edema Vital Signs: Most Recent Vital Signs Temperature 97.8 F 01/13/24 10:00 Temperature Source Temporal Artery Scan 01/13/24 10:00 Temperature Source Infrared 01/11/24 19:05 Pulse Rate 88 01/13/24 10:00 Respiratory Rate 17 01/13/24 10:00 Blood Pressure 160/90 H 01/13/24 10:00 Blood Pressure Mean 113 01/13/24 10:00 Blood Pressure Left Arm 179/107 01/11/24 23:07 Blood Pressure Location Right Arm 01/13/24 10:00 Blood Pressure Position Supine 01/13/24 10:00 O2 Sat by Pulse Oximetry 98 01/13/24 10:00 Oxygen Delivery Method Room Air 01/13/24 11:00 Height 5 ft 6 in 01/11/24 23:07 Weight 69.7 kg 01/11/24 23:07 Telemetry Type Remote Telemetry 01/13/24 07:00 Telemetry Monitoring Continues 01/13/24 07:00 Telemetry Heart Rate 95 01/13/24 07:00 EKG NC Interval 0.20 01/13/24 07:00 EKG QRS Interval 0.09 01/13/24 07:00 Telemetry Strip Reading SR 01/13/24 07:00 Imaging: EXAM: CT ANGIOGRAPHY CHEST (PE PROTOCOL) HISTORY: Chest pain, tachycardia TECHNIQUE: CTA chest with intravenous contrast. PE protocol. Multiplanar images were provided with MIP images and 3-D reconstructions. COMPARISON: 06/09/2023 FINDINGS: There is narrowing and obliteration of the right pulmonary arteries distal to the main vessel. There is a large mass-like consolidation in this region of the lung with an associated small pleural effusion and neoplasia at this level should be considered. The pulmonary arteries were otherwise unremarkable with no clearly defined embolus. Moderate atherosclerotic disease. Coronary artery calcifications. Cardiomegaly. Cannot exclude conglomerate mediastinal lymphadenopathy. Enlarged nodular thyroid gland. Multiple bilateral pulmonary nodules and masses consistent with a metastatic process. There is no pneumothorax. - - - - - IMPRESSION: 1. There is narrowing and obliteration of the right pulmonary arteries distal to the main vessel. There is a large mass-like consolidation in this region of the lung with an associated small pleural effusion and neoplasia at this level should be considered. The pulmonary arteries were otherwise unremarkable with no clearly defined embolus. 2. Cardiomegaly. 3. Multiple bilateral pulmonary nodules and masses consistent with a metastatic process. Lab Results Last 24 Hours: 01/13/24 04:20 WBC 7.02 RBC 4.26 Hgb 10.9 L Hct 35.4 L MCV 83.1 MCH 25.6 L MCHC 30.8 L RDW Coeff of [place] 16.8 H Plt Count 221 Immature Gran % (Auto) 0.4 Neut % (Auto) 70.9 Lymph % (Auto) 18.9 [place] % (Auto) 8.8 Eos % (Auto) 0.9 Baso % (Auto) 0.1 Neut # (Auto) 5.0 Lymph # (Auto) 1.3 [place] # (Auto) 0.6 Eos # (Auto) 0.1 Baso # (Auto) 0.0 Immature Gran # (Auto) 0.0 Sodium 143.2 Potassium 4.18 Chloride 109.2 H Carbon Dioxide 24.4 Anion Gap 13.78 BUN 20.9 H Creatinine 1.02 Estimated GFR (MDRD) 63.00 BUN/Creatinine Ratio 20.49 Glucose 130.7 H Calcium 9.42 Total Bilirubin 0.26 AST 23.9 ALT 17.0 Alkaline Phosphatase 63.9 Total Protein 6.90 Albumin 3.86 Globulin 3.04 Albumin/Globulin Ratio 1.26 Discharge Instructions Discharge Planning: Discharge Planning > 40 minutes If patient is discharged with left ventricular systolic dysfunction: NA Discharged with a beta tyler? [] If no, why not? [] Discharged with an kennedi/arb? [] If no, why not? [] Diagnosis: Lung Cancer Diet: Diabetic Activity: as tolerated Follow-up with PCP next week Medications: [place] 5/325 1-2 tabs every 4-6 hours as needed for pain Duoneb Q4-6H as needed for shortness of breath Discharge Medications: Medications at Discharge (Home Meds & RX) metformin 500 mg tablet 500 mg PO BID #90 tab-caps 05/03/14 acetaminophen 650 mg tablet,extended release (Pain Relief (acetaminophen)) 650 mg PO Q6HR PRN pain 09/27/22 cholecalciferol (vitamin D3) 10 mcg (400 unit) capsule (Vitamin D3) 10 mcg PO DAILY 09/27/22 loratadine 10 mg tablet (Allergy Relief (loratadine)) 10 mg PO DAILY PRN allergy symptoms 09/27/22 magnesium hydroxide 400 mg/5 mL oral suspension (Milk of Magnesia) 30 ml PO DAILY PRN constipation 09/27/22 sennosides 8.6 mg-docusate sodium 50 mg tablet (2-in-1 Laxative) 1 tab-cap PO BID 09/27/22 albuterol sulfate 2.5 mg/3 mL (0.083 %) solution for nebulization 2.5 mg inhalation Q6H PRN shortness of breath or wheezing 01/11/24 albuterol sulfate 90 mcg/actuation breath activated powder inhaler,sensor (Proa ir Digihaler) 2 inh inhalation Q6H PRN shortness of breath 01/11/24 brexpiprazole 1 mg tablet (Rexulti) 1 mg PO DAILY 01/11/24 dextromethorphan-guaifenesin 10 mg-100 mg/5 mL oral liquid (Biocotron) 10 ml PO Q6H 01/11/24 diclofenac sodium 1 % topical gel (Arthritis Pain (diclofenac)) 2 g topical Q6HR 01/11/24 donepezil 10 mg tablet 10 mg PO DAILY 01/11/24 dulaglutide 1.5 mg/0.5 mL subcutaneous pen injector (Trulicity) 1.5 mg subcut .Every Tu morning 01/11/24 losartan 25 mg tablet 25 mg PO DAILY 01/11/24 megestrol 400 mg/10 mL (40 mg/mL) oral suspension 40 mg PO .every morning 01/11/24 memantine 10 mg tablet 10 mg PO 2XD 01/11/24 oxybutynin chloride 5 mg tablet,extended release 24 hr 5 mg PO DAILY 01/11/24 paliperidone palmitate 234 mg/1.5 mL intramuscular syringe (Invega Sustenna) 234 mg IM MONTHLY 01/11/24 polysaccharide iron complex 150 mg iron capsule 150 mg PO DAILY 01/11/24 potassium chloride 10 mEq capsule,extended release 20 meq PO 2XD 01/11/24 hydrocodone 5 mg-acetaminophen 325 mg tablet 1 - 2 tab PO Q4-6H PRN pain #90 tabs 01/12/24 ipratropium 0.5 mg-albuterol 3 mg (2.5 mg base)/3 mL nebulization soln 3 ml NEB RTQ4H PRN shortness of breath or wheezing #100 mL 01/12/24 Discharge Plan Discharge Discharge Orders: Discharge Patient (ONCE); Ordered 01/13/24 Ordered By: OBED NASSAR Activity Restrictions/Additional Instructions: Diagnosis: Lung Cancer Diet: Diabetic Activity: as tolerated Follow-up with PCP next week Medications: [place] 5/325 1-2 tabs every 4-6 hours as needed for pain Duoneb Q4-6H as needed for shortness of breath Instructions: Lung Cancer (GEN) Patient Disposition: TRANSFER SNF Prescriptions: New ipratropium-albuterol 0.5 mg-3 mg(2.5 mg base)/3 mL Solution For Nebulization 3 ml NEB RTQ4H PRN (Reason: shortness of breath or wheezing) Qty: 100 0RF hydrocodone-acetaminophen 5-325 mg tablet 1 - 2 tab PO Q4-6H PRN (Reason: pain) Qty: 90 0RF Continued metformin 500 MG tablet 500 mg PO BID Qty: 90 acetaminophen [Pain Relief (acetaminophen)] 650 mg tablet extended release 650 mg PO Q6HR PRN (Reason: pain) loratadine [Allergy Relief (loratadine)] 10 mg tablet 10 mg PO DAILY PRN (Reason: allergy symptoms) magnesium hydroxide [Milk of Magnesia] 400 mg/5 mL suspension 30 ml PO DAILY PRN (Reason: constipation) sennosides-docusate sodium [2-in-1 Laxative] 8.6-50 mg tablet 1 tab-cap PO BID cholecalciferol (vitamin D3) [Vitamin D3] 10 mcg (400 unit) capsule 10 mcg PO DAILY diclofenac sodium [Arthritis Pain (diclofenac)] 1 % gel 2 g topical Q6HR Rx Instructions: bilateral hands topically every 6 hours Trulicity 1.5 mg/0.5 mL pen injector 1.5 mg subcut .Every Tues morning potassium chloride 10 mEq capsule, extended release 20 meq PO 2XD albuterol sulfate 2.5 mg /3 mL (0.083 %) solution for nebulization 2.5 mg inhalation Q6H PRN (Reason: shortness of breath or wheezing) Patient Comments: [NO ORIGINAL SIG] megestrol 400 mg/10 mL (40 mg/mL) suspension 40 mg PO .every morning donepezil 10 mg tablet 10 mg PO DAILY losartan 25 mg tablet 25 mg PO DAILY memantine 10 mg tablet 10 mg PO 2XD oxybutynin chloride 5 mg tablet extended release 24hr 5 mg PO DAILY dextromethorphan-guaifenesin [Biocotron] 10-100 mg/5 mL liquid 10 ml PO Q6H Invega Sustenna 234 mg/1.5 mL syringe 234 mg IM MONTHLY polysaccharide iron complex 150 mg iron capsule 150 mg PO DAILY Proair Digihaler 90 mcg/actuation aero powdr breath act w/sensor 2 inh inhalation Q6H PRN (Reason: shortness of breath) Rexulti 1 mg tablet 1 mg PO DAILY Did you review [place] [employer] for ALL controlled substances?: No Discussed opioids are addictive and Narcan is available by prescription or from pharmacy.: No Condition: Stable
[2024-01-13 13:55] VITALS: BP 157/94; PULSE 94; TEMP 97.3
== END 2024-01-13 14:18 ==
LOC: MEDSURG B 18:55 → ED 18:55 → MEDSURG B 22:56
PROVIDERS: ADMIT Hospitalist; ATTEND Nurse Practitioner Family
DX: J90 Pleural effusion, not elsewhere classified; I10 Essential (primary) hypertension; J18.9 Pneumonia, unspecified organism; Z20.822 Contact with and (suspected) exposure to COVID-19; I16.0 Hypertensive urgency; R06.02 Shortness of breath; Z79.84 Long term (current) use of oral hypoglycemic drugs; Z51.81 Encounter for therapeutic drug level monitoring; I51.7 Cardiomegaly; F20.9 Schizophrenia, unspecified; Z79.4 Long term (current) use of insulin; C34.91 Malignant neoplasm of unspecified part of right bronchus or lung; R11.2 Nausea with vomiting, unspecified; R07.9 Chest pain, unspecified; I45.10 Unspecified right bundle-branch block; E11.9 Type 2 diabetes mellitus without complications